=== PATIENT | female | born 1965 | race Caucasian/White ===

== ENCOUNTER 2019-05-20 12:26 | Emergency (ER) | payer BC ==
[~2019-05-20] VITALS: Ht 162.6 cm; Wt 85.9 kg
[2019-05-20] MEDS ORDERED: piperacillin/tazo 3.375gm/50ml 50 ML IV ONE (12:35)
[2019-05-20] MEDS ORDERED: normal saline 1000ML IV soln IVB ONE (12:35)
[2019-05-20] MEDS ORDERED: ondansetron/PF 4mg/2ml inj IV ONE (12:35)
[2019-05-20] MEDS ORDERED: iohexol 300mg/ml 100ml inj. ONE (12:56)
[2019-05-20 13:01] LABS: BASOPHILS % (AUTO) 0.7 % (0-1); EOSINOPHILS # (AUTO) 0.1 X10'3 (0-0.9); EOSINOPHILS % (AUTO) 1.2 % (0-6); HEMATOCRIT 42.1 % (35.0-45.0); HEMOGLOBIN 14.4 g/dl (12.0-16.0); LYMPHOCYTES # (AUTO) 1.4 X10'3 (1.1-4.8); LYMPHOCYTES % (AUTO) 19.2 % (21-51); MEAN CORPUSCULAR HEMOGLOBIN 31.5 PG (27.0-31.0); MEAN CORPUSCULAR HGB CONC 34.2 g/dL (33.0-36.5); MEAN CORPUSCULAR VOLUME 91.9 FL (78-98); MEAN PLATELET VOLUME 8.5 FL (7.4-10.4); MONOCYTES # (AUTO) 0.4 X10'3 (0-0.9); MONOCYTES % (AUTO) 5.2 % (2-12); NEUTROPHILS # (AUTO) 5.2 X10'3 (1.8-7.7); NEUTROPHILS % (AUTO) 73.7 % (42-75); PLATELET COUNT 244 X10'3 (140-440); RED BLOOD COUNT 4.57 X10'6 (4.20-5.60); RED CELL DISTRIBUTION WIDTH 13.7 % (11.5-14.5); WHITE BLOOD COUNT 7.1 X10'3 (4.5-11.0)
[2019-05-20] MEDS: morphine 4 MG/ML inj SYRINge IV PRN ×2 (13:14→14:02)
[2019-05-20 13:16] LABS: ALANINE AMINOTRANSFERASE 35 U/L (12-78); ALBUMIN 4.2 G/DL (3.4-5.0); ALBUMIN/GLOBULIN RATIO 1.1 (1.1-1.5); ALKALINE PHOSPHATASE 95 IU/L (46-116); ANION GAP 9 (8-16); ASPARTATE AMINO TRANSFERASE 23 U/L (10-37); BILIRUBIN,TOTAL 0.5 MG/DL (0.1-1.0); BLOOD UREA NITROGEN 16 MG/DL (7-18); BUN/CREATININE RATIO 17.4 (6.6-38.0); CALCIUM 9.1 MG/DL (8.5-10.1); CHLORIDE 104 MMOL/L (99-107); CREATININE 0.92 MG/DL (0.40-0.90); GLUCOSE 119 MG/DL (70-104); POTASSIUM 3.8 MMOL/L (3.5-5.1); SODIUM 141 MMOL/L (135-145); TOTAL CARBON DIOXIDE 27.7 MMOL/L (24-32); TOTAL PROTEIN 8.1 G/DL (6.4-8.2); eGFR 63 ML/MIN
[2019-05-20 13:21] VITALS: BP 143/97
[2019-05-20] MEDS ORDERED: ketorolac trometh. 30mg/ml inj. IV ONE (13:40)
[2019-05-20 13:44] LABS: CLARITY,URINE CLEAR (Clear); COLOR,URINE STRAW (Yellow); GLUCOSE, URINE NEGATIVE (Neg); KETONES,URINE NEGATIVE (Neg); LEUKOCYTE ESTERASE ,URINE SMALL (Neg); NITRITES, URINE NEGATIVE (Neg); OCCULT BLOOD,URINE NEGATIVE (Neg); PH,URINE 7.5 (4.8-8.0); PROTEIN,URINE NEGATIVE (Neg); UROBILINOGEN,URINE 0.2 E.U/dL (0.2-1.0)
[2019-05-20 13:45] LABS: UA COLLECTION TYPE CLN CATCH MIDSTREAM
[2019-05-20 13:52] LABS: TRANSITIONAL EPI CELLS,URINE FEW /HPF
[2019-05-20 13:53] LABS: BACTERIA,URINE FEW /HPF (Neg); RBC,URINE 0-2 /HPF (0-2); WBC,URINE 0-4 /HPF (0-4)
[2019-05-20 13:54] LABS: SQUAMOUS EPITHELIAL CELL,UR MODERATE /LPF (FEW)
[2019-05-20] MEDS ORDERED: ONDA4TAB6 PO (15:54)
[2019-05-20] MEDS ORDERED: HYDR-4383 PO (15:54)
[2019-05-20] MEDS ORDERED: NAPR-56 PO (15:54)
== END 2019-05-20 16:32 | disposition home or self-care (01) ==
LOC: ER 12:26
DX: R10.31 Right lower quadrant pain (principal); R19.7 Diarrhea, unspecified; Z79.899 Other long term (current) drug therapy
CPT/HCPCS: 36415; 71045; 74177; 76856; 80053; 81001; 83605; 85025; 87040; 87088; 93005; 96365; 96375; 96376; 99285; J1885; J2270; J2405; J2543; J7030; Q9967